=== PATIENT | female | born 1980 | race Caucasian/White ===

== ENCOUNTER → 2017-10-01 | Outpatient (REF) | payer BC ==
[2017-10-04 14:11] LABS: HPV HYBRID CAPTURE II Negative (Negative)
== END ==
LOC: M LAB REF 14:04
DX: Z01.419 Encounter for gynecological examination (general) (routine) without abnormal findings (principal); Z11.51 Encounter for screening for human papillomavirus (HPV); R85.610 Atypical squamous cells of undetermined significance on cytologic smear of anus (ASC-US)
CPT/HCPCS: G0123

== ENCOUNTER → 2018-04-03 | Outpatient (CLI) | payer BC | LOC: M RAD 11:25 | DX: R10.2 Pelvic and perineal pain (principal); N83.202 Unspecified ovarian cyst, left side; N85.8 Other specified noninflammatory disorders of uterus | CPT/HCPCS: 76856 ==

== ENCOUNTER → 2018-05-12 | Outpatient (REF) | payer BC | LOC: M LAB REF 12:15 | DX: R30.0 Dysuria (principal) | CPT/HCPCS: 87186 ==

== ENCOUNTER → 2018-05-18 | Outpatient (CLI) | payer BC ==
--- NOTE | 2018-05-19 04:53 | REP ---
Clinical: Left-sided pelvic pain and ovarian cyst . Technique: Transabdominal pelvic ultrasound followed by transvaginal examination for better evaluation of the endometrium and adnexa with color Doppler evaluation of the ovaries. Findings: Bladder is unremarkable and measures 7.7 x 2.4 x 3.5 cm . Normal anteverted uterus measures 7.8 x 4.1 x 4.3 cm . The endometrial complex measures 7.4 mm thickness. No discrete uterine or endometrial abnormalities are appreciated. Bilateral ovaries are normal in appearance and vascularity without evidence for torsion. Right ovary measures 3.0 x 1.8 x 3.1 cm ; R I = 0.59 . Left ovary measures 4.6 x 3.2 x 4.2 cm with 4.0 x 2.9 x 3.6 cm simple cyst ; R I = 0.58 . No pelvic fluid or adnexal mass lesion . Impression: 1. 4.0 cm simple left ovarian cyst. Consider reevaluation in 4-6 weeks to evaluate for resolution. 2. No evidence for torsion. Electronically Signed by Daquan Dunaway MD 05/19/2018 04:45 A
== END ==
LOC: EEVIPCON 13:00 → M RAD 13:30
PROVIDERS: ATTEND Advanced Practice Midwife
DX: N83.202 Unspecified ovarian cyst, left side (principal)

== ENCOUNTER → 2018-05-19 | Outpatient (REF) | payer BC | LOC: M LAB REF 16:26 | PROVIDERS: ATTEND Physician Assistant | DX: N39.0 Urinary tract infection, site not specified (principal) ==

== ENCOUNTER → 2018-07-13 | Outpatient (CLI) | payer BC ==
--- NOTE | 2018-07-13 15:33 | REP ---
PELVIC ULTRASOUND: Real-time sonographic evaluation of the pelvis was performed utilizing transabdominal and endovaginal technique. The urinary bladder is empty. The uterus measures 8.1 x 3.7 x 4.5 cm. Endometrial thickness is 3 mm. Ovaries are normal in size and echotexture, right ovary measuring 3.1 x 1.9 x 3.8 cm and left ovary 2.5 x 1.7 x 1.9 cm. Dominant follicle in the right ovary measures 1.7 cm and another in the left ovary measures 1.5 cm. There is no adnexal mass or free fluid. There is no evidence of ovarian torsion bilaterally, RI right ovary is 0.51 and left ovary 0.55. IMPRESSION: Essentially negative pelvic ultrasound. Electronically Signed by Kee Kulkarni MD 07/13/2018 11:51 P
== END ==
LOC: M RAD 11:35
PROVIDERS: ATTEND Advanced Practice Midwife
DX: R10.2 Pelvic and perineal pain (principal)

== ENCOUNTER → 2018-09-04 | Outpatient (REF) | payer BC ==
[2018-09-04 13:45] LABS: BASO % 0.6 % (0.0-1.0); EOS % 1.1 % (0.0-3.0); HEMATOCRIT 36.7 % (36.0-47.0); HEMOGLOBIN 11.6 g/dl (12.0-15.5); LYMPH # 1.5 10^3/uL (1.5-4.5); LYMPH % 43.1 % (24.0-44.0); MEAN CORPUSCULAR HEMOGLOBIN 29.4 pg (27.0-33.0); MEAN CORPUSCULAR HGB CONC 31.6 g/dl (32.0-36.5); MEAN CORPUSCULAR VOLUME 93.1 fl (80.0-96.0); MONO # 0.4 10^3/uL (0.0-0.8); MONO % 10.3 % (0.0-5.0); NEUTROPHILS # 1.6 10^3/uL (1.8-7.7); NEUTROPHILS % 44.6 % (36.0-66.0); PLATELET COUNT, AUTOMATED 252 10^3/uL (150-450); RED BLOOD COUNT 3.94 10^6/uL (4.00-5.40); WHITE BLOOD COUNT 3.5 10^3/uL (4.0-10.0)
[2018-09-04 14:00] LABS: ALBUMIN 3.7 GM/DL (3.2-5.2); ALT/SGPT 33 U/L (12-78); BILIRUBIN,TOTAL 0.5 MG/DL (0.2-1.0); BLOOD UREA NITROGEN 9 MG/DL (7-18); CALCIUM LEVEL 8.3 MG/DL (8.5-10.1); CARBON DIOXIDE LEVEL 29 MEQ/L (21-32); CHLORIDE LEVEL 108 MEQ/L (98-107); CREATININE FOR GFR 0.62 MG/DL (0.55-1.30); GLOMERULAR FILTRATION RATE > 60.0 (>60); GLUCOSE, FASTING 80 MG/DL (70-100); RHEUMATOID FACTOR QUANT < 10.0 IU/ML (<15.0); SODIUM LEVEL 142 MEQ/L (136-145); THYROID STIMULATING HORMONE 0.991 uIU/ML (0.358-3.740); TOTAL PROTEIN 7.1 GM/DL (6.4-8.2)
[2018-09-04 14:15] LABS: ERYTHROCYTE SEDIMENTATION RATE 7 mm/hr (0-20)
[2018-09-05 15:33] LABS: ANTI DOUBLE STRAND-DNA AB <1 IU/mL (0-9); ANTINUCLEAR ANTIBODIES DIRECT Positive (Negative); RNP ANTIBODIES 1.8 AI (0.0-0.9); SJOGREN'S ANTI SS-A <0.2 AI (0.0-0.9); SJOGREN'S ANTI SS-B <0.2 AI (0.0-0.9); SMITH ANTIBODIES <0.2 AI (0.0-0.9)
== END ==
LOC: M LABNEURO 10:49
PROVIDERS: ATTEND Psychiatry & Neurology Neurology
DX: R51 Headache (principal)

== ENCOUNTER → 2018-10-22 | Outpatient (CLI) | payer BC ==
[2018-10-24 15:17] LABS: ANTI DOUBLE STRAND-DNA AB <1 IU/mL (0-9); ANTINUCLEAR ANTIBODIES DIRECT Positive (Negative); RNP ANTIBODIES 1.8 AI (0.0-0.9); SJOGREN'S ANTI SS-A <0.2 AI (0.0-0.9); SJOGREN'S ANTI SS-B <0.2 AI (0.0-0.9); SMITH ANTIBODIES <0.2 AI (0.0-0.9)
== END ==
LOC: M WUC 12:47
PROVIDERS: ATTEND Psychiatry & Neurology Neurology
DX: R76.0 Raised antibody titer (principal)

== ENCOUNTER → 2019-01-27 | Outpatient (REF) | payer BC ==
[2019-02-03 15:18] LABS: HPV LOW VOL RFLX Negative (Negative)
== END ==
LOC: M LAB REF 11:37
PROVIDERS: ATTEND Specialist
DX: Z12.4 Encounter for screening for malignant neoplasm of cervix (principal); R87.610 Atypical squamous cells of undetermined significance on cytologic smear of cervix (ASC-US)
CPT/HCPCS: 87624; G0123